=== PATIENT | male | born 1985 | race Caucasian/White ===

== ENCOUNTER 2016-06-28 20:13 | Emergency (ER) | payer MEDICAID ==
--- NOTE | 2016-06-28 21:25 | ED Physician Chart ---
Chief Complaint/HPI - Patient Information Date Seen:: 06/28/16 Time Seen:: 21:10 Chief Complaint:: pruritic rash History of Present Illness:: Patient's had a pruritic rash starting on his left forearm 2 weeks ago. The rash has now spread to the right forearm. The itching is worse at night and in the morning. Patient denies sharing a blanket or visiting anyone at a custodial. He denies any exposure to skin irritants that could cause an allergic reaction. Allergies:: Allergies Allergy/AdvReac Type Severity Reaction Status Date / Time erythromycin base Allergy Verified 06/28/16 20:35 Vitals:: Vital Signs - 8 hr 06/28/16 20:20 Temp 98.0 F HR 88 RR 18 BP 135/77 O2 Sat % 100 Historian:: Patient Review:: Nurse's Note Reviewed Review of Systems - Review of Systems General/Constitutional: No fever, No chills Skin: Skin lesions, Rash Head: No headache Eyes: No loss of vision ENT: No earache Neck: No neck pain Cardio Vascular: No chest pain Pulmonary: No SOB GI: No nausea, No vomiting G/U: No dysuria Musculoskeletal: No bone or joint pain, No back pain Endocrine: No polyuria, No polydipsia Psychiatric: No prior psych history Hematopoietic: Bruising Allergic/Immuno: No urticaria Neurological: No syncope, No headache Past Medical History - Past Medical History Past Medical History: DM Family History: Diabetes Melitus Social History: Non Smoker, No Alcohol Surgical History: other (left knee and right ankle) Psychiatricy History: None Medication: Reviewed Family Medical History - Family Member Mother Living Status: Still Living Hx Family Diabetes: Yes Physical Exam - Physical Examination General/Constitutional: Well-developed, well-nourished, Alert Head: Atraumatic Eyes: Lids, conjuctiva normal Other Skin comments:: Multiple pink slightly raised about 5 mm in diameter nodules with signs of scratching ENMT: External ears, nose nl Neck: No nuchal rigidity Respiratory: Nl effort/Exclusion, Clear to Auscultation Cardio Vascular: RRR GI: No tenderness/rebounding/guarding : No CVA tenderness Extremities: Normal digits & nails Neuro/Psych: Normal gait ED Septic Shock - . Is Septic Shock (SBP<90, OR Lactate>4 mmol\L) present?: No - <6hrs of presentation: Vital Signs: Vital Signs - 8 hr 06/28/16 20:20 Temp 98.0 F HR 88 RR 18 BP 135/77 O2 Sat % 100 Reassessment (Disposition) - Reassessment Reassessment Condition:: Unchanged - Diagnosis Diagnosis:: scabies - Aftercare/Follow up Instructions Medication Prescribed:: elimite 60 gm tube Sig apply per directions - Patient Disposition Discharge/Transfer:: Home Condition at Disposition:: Stable, Unchanged ED Discharge Plan - Patient Disposition Admit/Discharge/Transfer: PT DISCHARGED HOME Prescriptions: Permethrin [Elimite] 60 gm TP DAILY #0 tube Instructions: Contact Precautions, [id number], Scabies Additional Instructions: FOLLOW UP WITH YOUR DOCTOR IN 2-3 DXAYS AND TO COME BACK TO ER IF SYMPTOMS WORSEN
== END 2016-06-28 21:45 | disposition home or self-care (01) ==
LOC: ER 20:13
DX: B86 Scabies (principal); E11.9 Type 2 diabetes mellitus without complications; Z88.1 Allergy status to other antibiotic agents

== ENCOUNTER 2016-12-04 22:10 | Inpatient (IN) | payer MEDICAID ==
--- NOTE | 2016-12-04 22:45 | ED Physician Chart ---
ED Chief Complaint/HPI - Patient Information Date Seen:: 12/04/16 Time Seen:: 22:40 Chief Complaint:: Right testicular pain, migratory abdominal pain History of Present Illness:: 31 yo male had right testicular pain since 2 pm while sitting in a truck. It was a sharp pain 10/10, lying on the right side relived the pain. At the same time, the patient also had abdominal pain started in the left upper quadrant and later at 6pm migrated to the right lower quadrant. The RLQ abdominal pain was worsened by road bumps when the patient had a ride to ER. He had nausea and vomited once in the ER. He had one small bowel movement at 2:30pm. Allergies:: Allergies Allergy/AdvReac Type Severity Reaction Status Date / Time erythromycin base Allergy Verified 12/04/16 22:25 Vitals:: Vital Signs - 8 hr 12/04/16 22:15 Temp 97.9 F HR 111 RR 20 BP 151/77 O2 Sat % 99 ED Review of Systems - Review of Systems General/Constitutional: No fever Skin: No skin lesions Head: No headache Eyes: No loss of vision ENT: No earache Cardio Vascular: No chest pain Pulmonary: No SOB GI: Nausea G/U: No dysuria Psychiatric: No prior psych history Hematopoietic: No bruising Neurological: No focal symptoms ED Past Medical History - Past Medical History Obtainable: Yes Past Medical History: DM Social History: Non Smoker, No Alcohol, No Drug Use Surgical History: other (left knee surgery, right ankle surgery) Family Medical History - Family Member Mother History Unknown: Yes Living Status: Still Living Hx Family Diabetes: Yes ED Physical Exam - Physical Examination General/Constitutional: Awake Head: Atraumatic Eyes: Lids, conjuctiva normal, PERRL, EOMI Skin: No rash Neck: Nontender Respiratory: Clear to Auscultation, No Wheeze/Rhonchi/Rales Cardio Vascular: RRR, No murmur, gallop, rubs, NL S1 S2 Other GI comments:: Abdomen soft, none distended, RLQ rebound tenderness, rovsing sign positive. Other comments:: Right testicular tenderness, no scrotal edema or erythema Extremities: Full ROM Neuro/Psych: Alert/oriented ED Assessment - Assessment General Assessment: Acute appendicitis to rule out right testicular torsion Assessment/Comments:: CT abdomen wo contrast Scrotal ultrasound Labs - Procedures Procedures:: CT abdomen showed acute appendicitis Scrotal ultrasound normal ED Septic Shock - . Is Septic Shock (SBP<90, OR Lactate>4 mmol\L) present?: No - <6hrs of presentation: Vital Signs: Vital Signs - 8 hr 12/04/16 22:15 Temp 97.9 F HR 111 RR 20 BP 151/77 O2 Sat % 99 ED Reassessment (Disposition) - Reassessment Reassessment Condition:: Improved - Patient Disposition Discharge/Transfer:: Acute Care w/in this hosp Admitting Medical Physician:: Alma Power (Also spoke with Dr. Barrera) Time:: 01:11 Condition at Disposition:: Stable ED Discharge Plan - Patient Disposition Admit/Discharge/Transfer: Acute Care w/in this hosp Condition at Disposition: Improved
[2016-12-04] MEDS ORDERED: cefTRIAXone 1 GM in Sodium Chloride 0.9% 50 ML IV ONE (23:26)
[2016-12-04] MEDS ORDERED: Morphine Sulfate 2 mg/mL 1mL Syr ONE (23:26)
[2016-12-04 23:28] LABS: RED BLOOD COUNT 5.21 Mil/cmm (4.30-5.70)
[2016-12-04 23:29] LABS: HEMATOCRIT 45.9 % (41.0-60); HEMOGLOBIN 16.1 gm/dL (12-16); MEAN CELL VOLUME 88.1 fl (80-99); MEAN CORPUSCULAR HEMOGLOBIN 30.8 pg (26.0-30.0); MEAN PLATELET VOLUME 9.4 fl
[2016-12-04 23:30] LABS: PLATELET COUNT 224 Th/cmm (150-400); WHITE BLOOD COUNT 18.3 Th/cmm (4.8-10.8)
[2016-12-04 23:31] LABS: INR 0.97 (0.5-1.4); PROTHROMBIN TIME (TEST) 10.1 SECONDS (9.5-11.5)
[2016-12-04 23:42] LABS: BAND NEUTROPHILE 1 % (0-10); NEUTROPHILS 90 % (40-80); PLATELET ESTIMATE ADEQUATE (NORMAL); TOTAL CELLS COUNTED 100
[2016-12-04 23:44] LABS: ALB/GLOB RATIO 1.5 (1.0-1.8); ALKALINE PHOSPHATASE 84 U/L (34-104); ANION GAP 14.2 (7.0-16.0); BILIRUBIN,TOTAL 1.5 mg/dL (0.3-1.0); BUN - UREA NITROGEN 19 mg/dL (7-25); BUN/CREATININE RATIO 27.1; CALCIUM SERUM 9.4 mg/dL (8.6-10.3); CARBON DIOXIDE 21.5 mEq/L (21.0-31.0); CHLORIDE 98 mEq/L (98-107); CREATININE - SERUM 0.7 mg/dL (0.7-1.3); GLUCOSE 324 mg/dL (70-105); POTASSIUM SERUM 3.7 mEq/L (3.5-5.1); SGOT 12 U/L (13-39); SGPT/ALT 10 U/L (7-52); SODIUM SERUM 130 mEq/L (136-145)
[2016-12-04] MEDS ORDERED: INSULIN HUMAN REGULAR 100 UNITS/ML UNIT SUBQ ONE (23:57)
[2016-12-05] MEDS ORDERED: INSULIN HUMAN REGULAR 100 UNITS/ML UNIT ONE (00:05)
[2016-12-05] MEDS ORDERED: Piperacillin Sodium/Tazobact 3.375 gm Vial IV ONE ×2 (01:32→04:46)
[2016-12-05] MEDS ORDERED: Sodium Chloride 0.9% 1,000 ML IV ONE ×2 (02:12→23:59)
[2016-12-05] MEDS: HYDROmorphone 1 mg/mL 1mL Syr IVP PRN ×4 (03:16→21:23)
[2016-12-05 04:31] LABS: URINE BILIRUBIN NEGATIVE (NEGATIVE); URINE BLOOD TRACE (NEGATIVE); URINE GLUCOSE (UA) >=1000 mg/dL (NEGATIVE); URINE KETONE 40 mg/dL (NEGATIVE); URINE PROTEIN 30 mg/dL (NEGATIVE); URINE UROBILINOGEN 0.2 E.U./dL (0.2 - 1.0)
[2016-12-05 04:41] LABS: URINE COLOR ORANGE
[2016-12-05 04:46] LABS: URINE BACTERIA OCCASIONAL /hpf (NONE SEEN); URINE EPITHELIAL CELLS OCCASIONAL /lpf (FEW); URINE WBC 0-2 /hpf (0-5)
--- NOTE | 2016-12-05 07:57 | Diagnostic Imaging Report ---
CT scan abdomen and pelvis without intravenous contrast HISTORY: Pain Total DLP equals 828 CTDI equals 14.2 Axial sections were obtained from the xiphoid process down to the pubic symphysis. The liver exhibits a homogeneous parenchyma. No focal lesions. The spleen appears normal. No abnormalities are seen in the region of the pancreas. No focal renal lesions. There is a dilated appendix with slight haziness of the periappendiceal fat. Findings are consistent with inflammatory change (appendicitis). Findings should be correlated clinically. No other abnormal masses or fluid collections seen within the pelvis. The urinary bladder appears normal. IMPRESSION: 1. Dilated appendix with slight haziness of the periappendiceal fat. Inflammatory change (appendicitis) cannot be excluded. Clinical correlation is needed.
--- NOTE | 2016-12-05 07:58 | Diagnostic Imaging Report ---
Testicular/scrotal ultrasound HISTORY: Pain The right testis measures 4.4 x 2.4 x 3.0 cm. No focal parenchymal lesions. Normal testicular vascular flow. The right epididymis appears normal. No hydrocele. The left testis measures 4.0 x 2.5 x 3.0 cm. No focal intratesticular lesions. Normal testicular vascular flow. The left epididymis appears normal. No other abnormalities. IMPRESSION: Negative examination
[2016-12-05] MEDS ORDERED: Bupivacaine 0.5% W/Ep 10 mL Vial ONE ×2 (13:52)
[2016-12-05] MEDS: INSULIN ASPART SLIDING SCALE 100 UNITS/ML UNIT SUBQ SCH ×2 (17:03→22:56)
[2016-12-05] MEDS ORDERED: Midazolam 1mg/ml 2 ml vial IV ONE (17:37)
[2016-12-05] MEDS ORDERED: Meperidine 50 mg/mL 1mL Syr ONE ×2 (17:39→19:25)
--- NOTE | 2016-12-05 18:29 | Operative Report ---
Post Operative Report - POST-OPERATIVE NOTE Preoperative diagnosis:: acute appendicitis Postoperative diagnosis:: acute appendicitis Operation performed:: laparoscopic appendectomy Specimen:: appendix Anesthesia:: Anesthesiologist:: dr Jaimes Blood Loss (fluid management):: 10ml Surgeon:: rochelle napier Stock Parts Fabricator:: none Findings:: acutely inflammed nonperforated appendix Prosthetic devices, grafts, tissue or device implanted:: none Complications:: none
[2016-12-05] MEDS ORDERED: Morphine Sulfate 4 mg/mL 1mL Syr IV PRN (18:35)
[2016-12-05] MEDS ORDERED: Lactated Ringer 1,000 ML IV SCH (18:45)
[2016-12-05] MEDS ORDERED: Meperidine 25 mg/mL 1mL Syr IVP PRN (18:45)
--- NOTE | 2016-12-05 19:02 | Operative Report ---
DATE OF SURGERY: 12/05/2016 PREOPERATIVE DIAGNOSIS: Acute appendicitis. POSTOPERATIVE DIAGNOSIS: Acute appendicitis, nonperforated. OPERATION PERFORMED: Laparoscopic appendectomy. SPECIMENS: Appendix. ANESTHESIA: General and local. ANESTHESIOLOGIST: Dr. Jaimes ESTIMATED BLOOD LOSS: 10 mL. SURGEON: Mike Barrera M.D. EXECUTIVE ADMINISTRATOR: None. INTRAOPERATIVE FINDINGS: Acutely inflamed, nonperforated appendix. PROSTHETIC DEVICES: None. COMPLICATIONS: None. DESCRIPTION OF PROCEDURE: After confirming the patient identification, procedure to be done, the patient was placed in supine position. The patient administered general anesthesia, intubated uneventfully. The abdomen was then prepped and draped in usual sterile fashion. Timeout performed. A supraumbilical incision was made with the scalpel and deepened with the Bovie cautery. The fascia was incised and entered into the abdominal cavity without injuring underlying bowel. CO2 pneumoperitoneum was achieved using open Barraza technique. The patient was placed in laparoscopic appendectomy position, head down, rotated to the left side. A 12 mm port was placed in the right upper quadrant. A 5 mm port was placed in suprapubic area. The appendix was identified. The base of the appendix was relatively free from inflammatory process. The [place] stapler device was then used to fire across the base of the appendix, one firing of the stapler across the appendix and mesoappendix base. The appendix was then placed into an Endobag and removed through supraumbilical port site. There was a little bit of bleeding from the staple line. Some Surgicel was placed in there and pressure was applied for 10 minutes and hemostasis ensured. The right lower quadrant was irrigated with normal saline. Irrigant fluid suctioned out. Hemostasis ensured. The 12 mm port was removed under direct visualization. The suture passer was then passed across the fascia using the Matias-Judie closure system. The 0 Vicryl sutures were then used to close the fascia. Two passes were made to close the fascia and then the 5 mm port was removed under direct visualization. CO2 pneumoperitoneum was released. The supraumbilical port fascia was approximated with interrupted 0 Vicryl sutures. The skin and subcutaneous of all port sites were then injected with 0.25% Marcaine with epinephrine. Skin was approximated using skin tamia. Dressings were applied. The patient tolerated the procedure well. The patient was woken up from anesthesia and taken to recovery room in stable condition. JOB# [id number]
[2016-12-05 20:27] LABS: ALB/GLOB RATIO 1.4 (1.0-1.8); ALKALINE PHOSPHATASE 68 U/L (34-104); ANION GAP 8.1 (7.0-16.0); BILIRUBIN,TOTAL 2.8 mg/dL (0.3-1.0); BUN - UREA NITROGEN 18 mg/dL (7-25); CALCIUM SERUM 8.5 mg/dL (8.6-10.3); CARBON DIOXIDE 25.9 mEq/L (21.0-31.0); CHLORIDE 104 mEq/L (98-107); CREATININE - SERUM 0.9 mg/dL (0.7-1.3); GLUCOSE 308 mg/dL (70-105); SGOT 10 U/L (13-39); SGPT/ALT 8 U/L (7-52); SODIUM SERUM 134 mEq/L (136-145)
--- NOTE | 2016-12-05 22:14 | History & Physical ---
ADMIT DATE: 12/05/2016 CHIEF COMPLAINT: Acute abdominal pain for 1 day duration. HISTORY OF PRESENT ILLNESS: The patient is a 31-year-old male who presented to the Emergency Room with acute ____ for 1 day duration evaluated by the ER physician; initial workup was significant for acute appendicitis. Admitted to the hospital. Dr. Bruce wolf, consulted on the case. The patient underwent laparoscopic appendectomy. The patient still has tenderness at surgery. No nausea, no vomiting. PAST MEDICAL HISTORY: Negative. PAST SURGICAL HISTORY: No recent surgery. ALLERGIES: None. MEDICATIONS: Follow admission reconciliation. SOCIAL HISTORY: No smoking, no alcohol or drugs. FAMILY HISTORY: Noncontributory. REVIEW OF SYSTEMS: RENAL SYSTEM: No history of chronic renal disorder. CARDIOVASCULAR SYSTEM: No coronary artery disease. ENDOCRINE SYSTEM: No diabetes or thyroid problem. GASTROINTESTINAL SYSTEM: No upper or lower GI bleeding, has acute appendicitis. SKELETOMUSCULAR SYSTEM: No muscular dystrophy. HEMATOLOGIC SYSTEM: No ____. GENITOURINARY SYSTEM: No dysuria, hematuria. PHYSICAL EXAMINATION: GENERAL: He is awake, alert, oriented, mildly in pain, not in distress. VITAL SIGNS: Temperature 98.7, heart rate 92, blood pressure 121/72. HEENT: Normocephalic. Pupils reacting equally to light and accommodation. Sclerae clear. NECK: Supple. Negative for lymphadenopathy, JVD or bruit. CHEST: Bilateral normal. No rhonchi or wheezing. HEART: S1, S2 normal, no gallop. ABDOMEN: Soft. Tenderness in the right lower abdomen. EXTREMITIES: No edema. NEUROLOGIC: She is awake, alert, oriented. No focal motor or sensory deficits. Cranial nerves 2-12 is intact. LABORATORY DATA: White blood cell 18.3, hemoglobin 16.1, hematocrit 45.9, platelets 224. Sodium 130, potassium 3.7, BUN 19, creatinine 0.7. ASSESSMENT: Acute appendicitis. PLAN: The patient was admitted to the hospital under Dr. Power's service, IV fluid, IV antibiotic, pain medications. JOB# [id number]
--- NOTE | 2016-12-05 23:35 | Consultation ---
DATE OF CONSULTATION: 12/05/2016 HISTORY OF PRESENT ILLNESS: The patient is a 31-year-old male complaining of initially right testicular pain with right lower quadrant abdominal pain as well too x 1-2 days having worsening abdominal pain, generalized as well too, was taken to the Emergency Room. He has some nausea and vomiting, one bowel movement earlier. He has had no similar events like this before. Workup in the ER was consistent with acute appendicitis. He has a leukocytosis and surgical evaluation requested. Dr. Power is the admitting doctor. ALLERGIES: Erythromycin. REVIEW OF SYSTEMS: Otherwise, negative except for what was described in the HPI. SOCIAL HISTORY: He denies smoking, alcohol, or illicit drug use. PAST SURGICAL HISTORY: He has a history of left knee surgery and right ankle surgery. FAMILY HISTORY: Unremarkable. PHYSICAL EXAMINATION: GENERAL: His weight is 106 kilograms. BMI of 33.5. VITAL SIGNS: He is afebrile. He is tachycardic 110-113. HEENT: With in normal limits. NECK: Within normal limits. CHEST: Clear to auscultation bilaterally. CARDIOVASCULAR: Regular rate. ABDOMEN: Nondistended, mild right lower quadrant and generalized tenderness. There is no guarding, rebound, or generalized peritoneal signs. NEUROVASCULAR AND EXTREMITIES: Otherwise normal. No CVA, flank, or paraspinal tenderness. LABORATORY DATA: White blood cell count 18.3, H and H is 16.1 and 45.9, platelet count 224,000, bands of 1. PTT is 23.6. PT is 10.1 and INR is 0.97. Sodium is 130. Glucose 324. Hemoglobin A1c is 12.2. Total bilirubin is 1.5. AST is 12. Glucose is 284-290. Urine, 30 urine protein. Urine glucose over 1000. Red blood cells 2-5. His radiographic studies, scrotal ultrasound, negative examination. CT abdomen and pelvis, dilated appendix with slight haziness of the periappendiceal fat, inflammatory changes, appendicitis cannot be excluded. Clinical correlation is recommended. IMPRESSION AND PLAN: The patient is a 31-year-old male with diabetes, who came in initially with right scrotal pain, but now has more right lower quadrant and diffuse abdominal pain. He has no fever. He has marked leukocytosis. He is quite tender in the right lower quadrant and some guarding in this area, but CT abdomen and pelvis reviewed, suspicious for acute appendicitis, dilated appendix with periappendiceal fat, inflammatory changes. IV antibiotics have been started. He is n.p.o. since midnight. IV fluids for dehydration. Recommended laparoscopic versus open appendectomy. He agrees to the procedure. The risks and benefits explained. All questions answered. JOB# [id number]
[2016-12-06] MEDS: HYDROmorphone 1 mg/mL 1mL Syr IVP PRN ×4 (05:50→23:01)
[2016-12-06 07:04] LABS: MEAN CORPUSCULAR HGB CONC 33.9 pg (28.0-36.0)
[2016-12-06 07:07] LABS: MEAN CELL VOLUME 91.4 fl (80-99); PLATELET COUNT 196 Th/cmm (150-400); RED BLOOD COUNT 4.28 Mil/cmm (4.30-5.70); RED CELL DISTRIBUTION WIDTH 12.1 % (11.5-20.0)
[2016-12-06 07:14] LABS: WHITE BLOOD COUNT 17.7 Th/cmm (4.8-10.8)
[2016-12-06 07:15] LABS: HEMATOCRIT 39.1 % (41.0-60); HEMOGLOBIN 13.3 gm/dL (12-16)
[2016-12-06 07:29] LABS: ALB/GLOB RATIO 1.3 (1.0-1.8); ALKALINE PHOSPHATASE 62 U/L (34-104); ANION GAP 8.9 (7.0-16.0); BILIRUBIN,TOTAL 2.2 mg/dL (0.3-1.0); BUN - UREA NITROGEN 18 mg/dL (7-25); BUN/CREATININE RATIO 25.7; CARBON DIOXIDE 23.6 mEq/L (21.0-31.0); CHLORIDE 103 mEq/L (98-107); CREATININE - SERUM 0.7 mg/dL (0.7-1.3); GLUCOSE 241 mg/dL (70-105); POTASSIUM SERUM 3.5 mEq/L (3.5-5.1); SGOT 8 U/L (13-39); SGPT/ALT 7 U/L (7-52); SODIUM SERUM 132 mEq/L (136-145)
[2016-12-06 07:41] LABS: BAND NEUTROPHILE 3 % (0-10); EOSINOPHIL 1 % (0-5); NEUTROPHILS 83 % (40-80); TOTAL CELLS COUNTED 100
[2016-12-06] MEDS: INSULIN ASPART SLIDING SCALE 100 UNITS/ML UNIT SUBQ SCH ×4 (07:48→21:15)
--- NOTE | 2016-12-06 16:20 | Internal Medicine Prog Note ---
Internal Medicine Subjective - Subjective Service Date: 12/06/16 Patient seen and examined:: without staff Patient is:: awake, in bed Patient Complaints of:: other (pain at site of the surgery.) Per staff patient has:: no adverse event Internal Medicine Objective - Results Result Diagrams: 12/06/16 06:45 12/06/16 06:45 Recent Labs: Laboratory Last Values WBC 17.7 Th/cmm (4.8-10.8) H 12/06/16 06:45 RBC 4.28 Mil/cmm (4.30-5.70) L 12/06/16 06:45 Hgb 13.3 gm/dL (12-16) D 12/06/16 06:45 Hct 39.1 % (41.0-60) L D 12/06/16 06:45 MCV 91.4 fl (80-99) 12/06/16 06:45 MCH 31.0 pg (26.0-30.0) H 12/06/16 06:45 MCHC Differential 33.9 pg (28.0-36.0) 12/06/16 06:45 RDW 12.1 % (11.5-20.0) 12/06/16 06:45 Plt Count 196 Th/cmm (150-400) 12/06/16 06:45 MPV 9.0 fl 12/06/16 06:45 Neutrophils % TUNNEL KILN OPERATOR 12/06/16 06:45 Band Neutrophils % 3 % (0-10) 12/06/16 06:45 Lymphocytes % TUNNEL KILN OPERATOR 12/06/16 06:45 Monocytes % TUNNEL KILN OPERATOR 12/06/16 06:45 Eosinophils % TUNNEL KILN OPERATOR 12/06/16 06:45 Basophils % TUNNEL KILN OPERATOR 12/06/16 06:45 Neutrophils (Manual) 83 % (40-80) H 12/06/16 06:45 Lymphocytes 8 % (20-50) L 12/06/16 06:45 Monocytes 5 % (2-10) 12/06/16 06:45 Eosinophils 1 % (0-5) 12/06/16 06:45 Platelet Estimate ADEQUATE (NORMAL) 12/04/16 23:10 PT 10.1 SECONDS (9.5-11.5) 12/04/16 23:10 INR 0.97 (0.5-1.4) 12/04/16 23:10 PTT (Actin FS) 23.6 SECONDS (26.0-38.0) L 12/04/16 23:10 Sodium 132 mEq/L (136-145) L 12/06/16 06:45 Potassium 3.5 mEq/L (3.5-5.1) 12/06/16 06:45 Chloride 103 mEq/L (98-107) 12/06/16 06:45 Carbon Dioxide 23.6 mEq/L (21.0-31.0) 12/06/16 06:45 Anion Gap 8.9 (7.0-16.0) 12/06/16 06:45 BUN 18 mg/dL (7-25) 12/06/16 06:45 Creatinine 0.7 mg/dL (0.7-1.3) 12/06/16 06:45 Est GFR ( Amer) > 60.0 ml/min (>90) 12/06/16 06:45 Est GFR (Non-Af Amer) > 60.0 ml/min 12/06/16 06:45 BUN/Creatinine Ratio 25.7 12/06/16 06:45 Glucose 241 mg/dL (70-105) H 12/06/16 06:45 POC Glucose 222 MG/DL (70 - 105) H 12/06/16 11:57 Hemoglobin A1c % 12.2 % (4.0-6.0) H 12/04/16 23:10 Whole Bld Lactic Acid 1.52 mmol/L (0.60-1.99) 12/04/16 23:10 Calcium 8.0 mg/dL (8.6-10.3) L 12/06/16 06:45 Total Bilirubin 2.2 mg/dL (0.3-1.0) H 12/06/16 06:45 AST 8 U/L (13-39) L 12/06/16 06:45 ALT 7 U/L (7-52) 12/06/16 06:45 Alkaline Phosphatase 62 U/L (34-104) 12/06/16 06:45 Total Protein 5.9 gm/dL (6.0-8.3) L 12/06/16 06:45 Albumin 3.3 gm/dL (4.2-5.5) L 12/06/16 06:45 Globulin 2.6 gm/dL 12/06/16 06:45 Albumin/Globulin Ratio 1.3 (1.0-1.8) 12/06/16 06:45 Urine Source CLEAN C 12/05/16 03:40 Urine Color ORANGE 12/05/16 03:40 Urine Clarity HAZY (CLEAR) 12/05/16 03:40 Urine pH 6.0 (4.6 - 8.0) 12/05/16 03:40 Ur Specific [place] 1.020 (1.005-1.030) 12/05/16 03:40 Urine Protein 30 mg/dL (NEGATIVE) H 12/05/16 03:40 Urine Glucose (UA) >=1000 mg/dL (NEGATIVE) H 12/05/16 03:40 Urine Ketones 40 mg/dL (NEGATIVE) H 12/05/16 03:40 Urine Blood TRACE (NEGATIVE) 12/05/16 03:40 Urine Nitrate NEGATIVE (NEGATIVE) 12/05/16 03:40 Urine Bilirubin NEGATIVE (NEGATIVE) 12/05/16 03:40 Urine Urobilinogen 0.2 E.U./dL (0.2 - 1.0) 12/05/16 03:40 Ur Leukocyte Esterase NEGATIVE (NEGATIVE) 12/05/16 03:40 Urine RBC 2-5 /hpf (0-5) H 12/05/16 03:40 Urine WBC 0-2 /hpf (0-5) 12/05/16 03:40 Ur Epithelial Cells OCCASIONAL /lpf (FEW) 12/05/16 03:40 Urine Bacteria OCCASIONAL /hpf (NONE SEEN) 12/05/16 03:40 Blood Type O POSITIVE 12/05/16 15:10 Antibody Screen NEGATIVE 12/05/16 15:10 - Physical Exam Vitals and I&O: Vital Signs Temp 98.2 F 12/05/16 20:00 Pulse 98 12/05/16 20:00 Resp 18 12/05/16 20:00 BP 123/79 12/05/16 20:00 Pulse Ox 100 12/05/16 20:00 Intake & Output 12/05/16 12/06/16 12/06/16 18:59 06:59 18:59 Intake Total 50 1000 Balance 50 1000 Weight (lbs) 105.233 kg 105.687 kg Intake: Intake, IV Amount 50 1000 Piperacillin Sodium/ 50 Tazobact 3.375 gm In Sodium Chloride 0.9% 50 ml @ 100 mls/hr IV Q6HR [facility] Rx#:[id number] Active Medications: Current Medications Acetaminophen (Tylenol) 650 mg PO Q4H PRN PRN Reason: Fever > 101 Stop: 02/03/17 02:11 Hydromorphone HCl (Dilaudid) 1 mg IVP Q4HR PRN PRN Reason: Pain (Severe) Stop: 02/03/17 02:11 Last Admin: 12/06/16 10:32 Dose: 1 mg Piperacillin Sod/Tazobactam (Sod 3.375 gm/ Sodium Chloride) 50 mls @ 100 mls/ hr IV Q6HR [facility] Stop: 02/03/17 05:59 Last Admin: 12/06/16 12:37 Dose: 100 mls/hr Lactated Ringer's (Lactated Ringer) 1,000 mls @ 0 mls/hr IV .Q0M [facility] PRN Reason: TKO Stop: 12/06/16 18:44 Insulin Aspart (Novolog Insulin Sliding Scale) 0 units SUBQ ACHS [facility] PRN Reason: Protocol Stop: 02/03/17 16:59 Last Admin: 12/06/16 12:32 Dose: 4 units Meperidine HCl (Demerol) 12.5 mg IVP UD PRN PRN Reason: POST-OP PAIN Stop: 12/06/16 18:44 Miscellaneous (Zosyn Iv Per Pharmacy) 1 ea MC PRN PRN PRN Reason: PROTOCOL Stop: 02/03/17 01:03 Last Admin: 12/05/16 01:42 Dose: 1 ea Morphine Sulfate (Morphine) 4 mg IV Q2HR PRN PRN Reason: Pain (Moderate) Stop: 02/03/17 02:11 Last Admin: 12/06/16 12:32 Dose: 4 mg Ondansetron HCl (Zofran) 4 mg IV Q8HR PRN PRN Reason: Nausea Stop: 02/03/17 02:11 Last Admin: 12/06/16 12:35 Dose: 4 mg General: alert HEENT: NC/AT, PERRLA, EOMI, throat clear Neck: Supple Lungs: CTAB Cardiovascular: Normal S1, Normal S2, without murmur Abdomen: soft, tender, non-distended Extremities: clear - Procedures Procedures: Procedures Procedure Code Date INJECT/INFUSE NEC 99.29 01/06/13 LAPAROSCOPY APPENDECTOMY 67914 12/05/16 REMOV INT FIX-TIB/FIBULA 78.67 02/21/00 REMOVAL OF SUPPORT IMPLANT 15550 02/21/00 RESECTION OF APPENDIX, PERCUTANEOUS ENDOSCOPIC APPROACH [id number] 12/05/16 Internal Medicine Assmt/Plan - Assessment Assessment: 1.ACUTE APPENDICITIS. 2.SP LAP.APPENDECTOMY. 3.DM 4.LEUKOCYTOSIS. - Plan Plan: CONTINUE ON CURRENT MEDICATION AND ABS.CBC IN AM. Nutritional Asmnt/Malnutr-PDOC - Dietary Evaluation Malnutrition Findings (Please click <Entered> for more info): Nutritional Asmnt/Malnutrition Start: 12/05/16 11: 36 Text: Status: Complete Freq: Document 12/05/16 11:36 GSUN (Rec: 12/05/16 11:50 GSUN [email or web address]) Nutritional Asmnt/Malnutrition Patient General Information Nutritional Screening High Risk Screening Diagnosis Reason for visit: appendicitis Pertinent Medical Hx/Surgical Hx ER report: DM, left knee surgery, right ankle surgery Subjective Information 31 year old male from home, father at bedside. RD consult for BG. 12/04 CT suggested appendicitis. Pt with pain, 1 vomit in ER prior to adm to [facility], 1 small BM. Provided brief DM nutrition edu, pt appeared motivated to learn, however limited reception interviewer due to currently in major pain. 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 Informed diet advanmcenet to [facility] diet, pt agreeable, denied allergies. Usually good appetite. Teeth intact. Pt appeared overweight , no muscle fat wasting. Pt report UBW 230lb. Current Diet Order/ Nutrition Support NPO Pertinent Medications Dilaudid, Morphine Zofran Pertinent Labs 12/04: A1c 12.2H, glucose 324H Nutritional Hx/Data Height 1.78 m Height (Calculated Centimeters) 177.8 Current Weight (lbs) 106.05 kg Weight (Calculated Kilograms) 106.0 Weight (Calculated Grams) 287675.9 [place] Body Weight 166 Recent Weight Change No Weight Status Obese GI Symptoms Food Allergies No Skin Integrity/Comment: [place] 21. Skin intact. Estimated Nutritional Goals BEE in Kcals: Adj wt of IBW Calories/Kcals/Kg AdjBW 183lb/83.2kg Kcals Calculated 0-2496kcal (25-30kcal/kg) Protein: Adj wt of IBW Protein Calculated 67-83g (0.8-1g/kg) Fluid: ml 2080-2496ml (1ml/kcal) Nutritional Problem 1. Problem Problem Altered nutrition related laboratory values related to Etiology DM aeb Signs/Symptoms: A1c 12.2, glucose 324 on adm Intervention/Recommendation Comments 1. When appropriate to resume oral diet, recommend [id number] with double portions vegetables. Dx ?appendicitis, currently NPO. 2. Provided DM nutritino edu, pt was motivated however limited reception interviewer due to current pain level. Provide re -edu during follow up as able. Expected Outcomes/Goals Expected Outcomes/Goals 1. Pt to resume oral diet and meet at least 75% of estimated nutritinoal needs.
--- NOTE | 2016-12-06 23:54 | Progress Notes ---
DATE: 12/06/2016 TIME: 11:01 p.m. OBJECTIVE: VITAL SIGNS: Temperature is . Vital signs otherwise stable, in no acute distress. HEENT AND NECK: Within normal limits. CHEST: Clear to auscultation bilaterally. HEART: Regular rate. ABDOMEN: Soft, mild incisional tenderness. Incisions clean and dry. NEUROVASCULAR AND EXTREMITIES: Otherwise normal. LABORATORY DATA: White blood cell count 17.7, H and H is 13 and 39.1, platelet count 196. Sodium is 132, glucose 241. The blood glucose levels have been 247, 222, 265, 228. Bilirubin is 2.2. IMPRESSION AND PLAN: Postop day #1, status post laparoscopic appendectomy for nonperforated appendicitis afebrile, but he still has a significant leukocytosis. Continue IV antibiotics. The patient is on Zosyn at this time every 6 hours. The patient is tolerating liquid diet, ambulating limited. Encourage up and out of bed ambulation. DVT prophylaxis. Keep on liquid diet, can probably advance to full liquid diet tomorrow and recheck the CBC. Continue IV antibiotics. Reevaluate tomorrow regarding discharge planning. JOB# [id number]
[2016-12-07] MEDS: HYDROmorphone 1 mg/mL 1mL Syr IVP PRN ×2 (05:08→09:45)
[2016-12-07 05:51] LABS: % BASOPHILS 0.3 % (0.0-2.0); % EOSINOPHILS 0.9 % (0.0-5.0); % MONOCYTES 6.5 % (2.0-10.0); % NEUTROPHILS 75.3 % (40.0-80.0); HEMATOCRIT 38.2 % (41.0-60); HEMOGLOBIN 13.1 gm/dL (12-16); MEAN CELL VOLUME 89.5 fl (80-99); MEAN CORPUSCULAR HEMOGLOBIN 30.7 pg (26.0-30.0); MEAN CORPUSCULAR HGB CONC 34.3 pg (28.0-36.0); MEAN PLATELET VOLUME 9.1 fl; NEUTROPHILE ABSOLUTE 8.5 Th/cmm (1.8-8.0); PLATELET COUNT 211 Th/cmm (150-400); RED BLOOD COUNT 4.27 Mil/cmm (4.30-5.70); RED CELL DISTRIBUTION WIDTH 11.8 % (11.5-20.0)
[2016-12-07 06:03] LABS: WHITE BLOOD COUNT 11.2 Th/cmm (4.8-10.8)
[2016-12-07] MEDS: INSULIN ASPART SLIDING SCALE 100 UNITS/ML UNIT SUBQ SCH ×2 (06:48→11:49)
[2016-12-07] MEDS ORDERED: Enoxaparin 40 mg/0.4 mL 0.4mL Syr SUBQ SCH (09:00)
[2016-12-07] MEDS: Gentamicin 0.3% Ophth Soln 5mL Bottle RIGHT EYE SCH ×2 (11:51→13:54)
[2016-12-07] MEDS ORDERED: Probiotic Screen MC PRN (13:57)
--- NOTE | 2016-12-07 15:39 | Pathology Report ---
[id number] Collection Date: 12/05/2016 Surgeon: Dr. Sushil Barrera Specimen Description: Appendix Gross Description: Received in formalin is an 11.5 cm in length x up to 1.2 cm in diameter appendix with induration and extensive exudate coating the outer surface of the specimen. Sectioning shows an intact appendix wall and lumen with no evidence for perforation. [employer] sections are submitted in two cassettes labeled A1 and A2. Microscopic Description: The histologic sections show an intact appendix with extensive acute inflammation seen extending through the muscular wall and involving the mucosal surfaces. Large collections of neutrophils are seen consistent with acute appendicitis. Diagnosis: Acute appendicitis. [facility]# [id number] [facility]
[2016-12-08] MEDS ORDERED: Lactobacillus Rhamnosus 10 Billion CFU Capsule PO SCH (09:00)
== END 2016-12-07 16:00 | disposition home or self-care (01) | DRG 225 ==
LOC: ER 22:10 → MSI 12-05 01:15
PROVIDERS: ADMIT Family Medicine; ATTEND Family Medicine
PROC: 0DTJ4ZZ Resection of Appendix, Percutaneous Endoscopic Approach (ICD-10-PCS; principal; 2016-12-05)
DX: K35.80 Unspecified acute appendicitis (principal); E11.65 Type 2 diabetes mellitus with hyperglycemia; E86.0 Dehydration
CPT/HCPCS: 36415-UA; 76870-TC; 80053-TC; 81001-TC; 82948-90; 83036-90; 83605; 85007-TC; 85025-TC; 85027-TC; 85610-TC; 86850-TC; 86900-TC; 86901-TC; 88304-TC; 90799; 96372; 96375; J0690; J0696; J1170; J1650; J1815; J2250; J2270; J2405; J2543; J2704; J7030; X6024; Z7610

== ENCOUNTER 2018-11-10 15:38 | Emergency (ER) | payer SELFPAY ==
[2018-11-10] MEDS ORDERED: Bacitracin pkt 1 gm Pkt TP ONE (17:04)
--- NOTE | 2018-11-10 17:27 | ED Physician Chart ---
ED Chief Complaint/HPI - Patient Information Date Seen:: 11/10/18 Time Seen:: 16:00 Chief Complaint:: cut glass took piece out Allergies:: Allergies Allergy/AdvReac Type Severity Reaction Status Date / Time erythromycin base Allergy Verified 11/10/18 15:59 Vitals:: Vital Signs - 8 hr 11/10/18 15:59 Temp 99 F HR 97 RR 18 BP 133/85 O2 Sat % 99 Historian:: Patient, Family Member Review:: Nurse's Note Reviewed ED Review of Systems - Review of Systems General/Constitutional: No fever Skin: Skin lesions (flap laceration anterior rll v shape1/4 inch deep max) ED Past Medical History - Past Medical History Past Medical History: DM Family Medical History - Family Member Mother History Unknown: Yes Living Status: Still Living Hx Family Diabetes: Yes ED Physical Exam - Physical Examination General/Constitutional: Well-developed, well-nourished, Alert, No distress, GCS 15, Non-toxic appearing, Ambulatory Head: Atraumatic Eyes: Lids, conjuctiva normal Skin: Nl inspection ENMT: External ears, nose nl Neck: Nontender Respiratory: Nl effort/Exclusion Cardio Vascular: RRR GI: No tenderness/rebounding/guarding : No CVA tenderness Extremities: No tenderness or effusion Neuro/Psych: Alert/oriented ED Assessment - Assessment General Assessment: lidocaine epi 40 ethilon 7 ED Septic Shock - . Is Septic Shock (SBP<90, OR Lactate>4 mmol\L) present?: No - <6hrs of presentation: Vital Signs: Vital Signs - 8 hr 11/10/18 15:59 Temp 99 F HR 97 RR 18 BP 133/85 O2 Sat % 99 ED Reassessment (Disposition) - Reassessment Reassessment Condition:: Improved - Patient Disposition Discharge/Transfer:: Home (infec instruc recheck 2 out 10)
== END 2018-11-10 17:30 | disposition home or self-care (01) ==
LOC: ER 15:38
DX: S81.811A Laceration without foreign body, right lower leg, initial encounter (principal); E11.9 Type 2 diabetes mellitus without complications; Z88.1 Allergy status to other antibiotic agents; W25.XXXA Contact with sharp glass, initial encounter; Y93.89 Activity, other specified; Y92.89 Other specified places as the place of occurrence of the external cause; Y99.8 Other external cause status
CPT/HCPCS: 12002; A4217; X7704; Z7502; Z7610